=== PATIENT | female | born 1935 | race Caucasian/White ===

== ENCOUNTER 2020-01-07 12:40 | Emergency (ER) | payer OTHER ==
[~2020-01-07] VITALS: Ht 157.5 cm; Wt 72.6 kg
[2020-01-07] MEDS ORDERED: CARVEDILOL12.5 MG (13:03)
[2020-01-07] MEDS ORDERED: ATACAND HCT 161 EACH PO (13:04)
[2020-01-07] MEDS ORDERED: CYMBALTA60 MG PO (13:04)
[2020-01-07] MEDS ORDERED: EXELON1 EAC1 TD (13:04)
[2020-01-07] MEDS ORDERED: NEURONTIN600 M1 PO (13:05)
[2020-01-07] MEDS ORDERED: BUPAP 50 MG-301 EACH PO (13:05)
== END 2020-01-07 14:37 | disposition home or self-care (01) ==
LOC: ER 12:40
DX: S30.0XXA Contusion of lower back and pelvis, initial encounter (principal); W18.09XA Striking against other object with subsequent fall, initial encounter; Y93.89 Activity, other specified; Y92.091 Bathroom in other non-institutional residence as the place of occurrence of the external cause; Y99.8 Other external cause status